=== PATIENT | female | born 1935 | race Caucasian/White ===

== ENCOUNTER → 2016-06-25 | Outpatient (CLI) | payer OTHER ==
--- NOTE | 2016-06-25 16:39 | DX ---
Lumbar spine, 4 views Clinical Indication: Back pain. No known trauma. Evaluate for spondylolisthesis. Comparison: MR lumbar spine of January 19, 2016. Findings: T11 compression fracture is again present. Anterior osteophytosis is noted at T11-T12. Fernando tebral body heights and disk spaces are relatively well maintained from L1 through the L4-L5 interspa ce. L5-S1 interspace is near [id number]. There is 3 mm of anterolisthesis of L4 on L5, likely secon juana to facet osteoarthritic degenerative changes. Impression: 1. Known T11 compression fracture not significantly changed compared to the MRI. 2. Grade 1 spondylolisthesis at L5-S1, likely secondary to degenerative changes. This appears stable in multiple positions. 3. Degenerative disk disease at L5-S1, and multilevel lower lumbar spine facet osteoarthropathy. Guera lar findings were present on the MRI from January 19, 2016. If pain persists, consider repeat MRI of the spine.
== END ==
LOC: EDSTATUS 11:36 → FIMAGING 14:45
PROVIDERS: ATTEND Physician Assistant
DX: M51.37 Other intervertebral disc degeneration, lumbosacral region (principal); M43.17 Spondylolisthesis, lumbosacral region

== ENCOUNTER → 2016-11-27 | Outpatient (CLI) | payer OTHER | LOC: FLAB 12:40 | DX: Z01.811 Encounter for preprocedural respiratory examination (principal); K44.9 Diaphragmatic hernia without obstruction or gangrene ==

== ENCOUNTER → 2016-11-29 | Outpatient (CLI) | payer OTHER ==
--- NOTE | 2016-11-29 14:48 | CPEKG ---
Heart Rate: 66 RR Interval: 909 P-R Interval: 172 QRSD Interval: 88 QT Interval: 436 QTC Interval: 457 P Tarrs: 60 QRS Tarrs: 21 T Wave Tarrs: 9 EKG Severity - BORDERLINE ECG - EKG Impression: SINUS RHYTHM EKG Impression: CONSIDER ANTERIOR INFARCT Electronically Signed By: Dawson Moran 29-Nov-2016 17:11:08
== END ==
LOC: FCP 14:27
PROVIDERS: ATTEND Family Medicine Geriatric Medicine
DX: J44.9 Chronic obstructive pulmonary disease, unspecified (principal)

== ENCOUNTER → 2017-08-02 | Outpatient (CLI) | payer OTHER | LOC: FIMAGING 10:48 | PROVIDERS: ATTEND Internal Medicine Gastroenterology | DX: K22.8 Other specified diseases of esophagus (principal); K44.9 Diaphragmatic hernia without obstruction or gangrene ==

== ENCOUNTER → 2017-10-14 | Outpatient (CLI) | payer OTHER | LOC: BHFA 16:15 | PROVIDERS: ATTEND Internal Medicine Cardiovascular Disease | DX: R01.1 Cardiac murmur, unspecified (principal) ==

== ENCOUNTER → 2018-03-27 | Outpatient (CLI) | payer OTHER | LOC: FIMAGING 15:46 | PROVIDERS: ATTEND Family Medicine | DX: Z12.31 Encounter for screening mammogram for malignant neoplasm of breast (principal) ==

== ENCOUNTER → 2018-04-03 | Outpatient (CLI) | payer OTHER | LOC: FIMAGING 13:15 | PROVIDERS: ATTEND Family Medicine | DX: Z13.820 Encounter for screening for osteoporosis (principal); M85.89 Other specified disorders of bone density and structure, multiple sites; E21.3 Hyperparathyroidism, unspecified; E03.9 Hypothyroidism, unspecified; S32.000A Wedge compression fracture of unspecified lumbar vertebra, initial encounter for closed fracture; Z79.890 Hormone replacement therapy; Z78.0 Asymptomatic menopausal state ==

== ENCOUNTER → 2018-05-14 | Outpatient (CLI) | payer OTHER | LOC: FIMAGING 16:07 | PROVIDERS: ATTEND Family Medicine | DX: R10.31 Right lower quadrant pain (principal); N85.8 Other specified noninflammatory disorders of uterus; Z98.890 Other specified postprocedural states ==

== ENCOUNTER → 2018-09-03 | Outpatient (CLI) | payer OTHER | LOC: BHFA 13:30 | PROVIDERS: ATTEND Internal Medicine Cardiovascular Disease | DX: R06.02 Shortness of breath (principal); J44.9 Chronic obstructive pulmonary disease, unspecified; I27.20 Pulmonary hypertension, unspecified | CPT/HCPCS: 78452; 93017; A9500; J2785 ==

== ENCOUNTER → 2018-09-29 | Outpatient (CLI) | payer OTHER | LOC: BHFA 16:15 | PROVIDERS: ATTEND Internal Medicine Cardiovascular Disease | DX: R06.02 Shortness of breath (principal) ==

== ENCOUNTER → 2018-11-28 | Outpatient (CLI) | payer OTHER | LOC: FIMAGING 13:42 ==